=== PATIENT | female | born 1975 | race Two or more races ===

== ENCOUNTER 2020-11-28 15:28 | Inpatient (IN) | payer OTHER ==
[~2020-11-28] VITALS: Ht 170.2 cm; Wt 69.9 kg
--- NOTE | 2020-11-28 16:17 | NUR ---
To ER bed 6, c/o left breast pain x 2 days, s/p breast reduction 3 months ago, left breast noted with redness, aaox4, breathing even and non labored, friend at bedside
[2020-11-28] MEDS ORDERED: IV NS 0.9% 1,000 ML BAG IV ONE (16:30)
[2020-11-28] MEDS ORDERED: VANCOMYCIN 1 GM in IV D5W 250 ML IV ONE (16:30)
[2020-11-28] MEDS ORDERED: PIPERACILLIN /TAZOBACTAM 3.375 G in IV D5W 50 ML IV ONE (16:30)
[2020-11-28 16:40] LABS: BASOPHILS # (AUTO) 0.2 K/uL (0.0-0.2); BASOPHILS % (AUTO) 1.3 % (0.0-2.0); EOSINOPHILS % (AUTO) 0.1 % (0.0-6.0); HEMATOCRIT 42 % (33-45); HEMOGLOBIN 13.3 g/dL (11.5-14.8); LYMPHOCYTES # (AUTO) 1.5 K/uL (0.8-4.8); LYMPHOCYTES % (AUTO) 9.4 % (20.0-44.0); MEAN CORPUSCULAR HGB CONC 32 g/dl (31.0-36.0); MEAN CORPUSCULAR VOLUME 73 fL (82-100); MONOCYTES % (AUTO) 6.7 % (2.0-12.0); NEUTROPHILS # (AUTO) 12.8 K/uL (1.8-8.9); NEUTROPHILS % (AUTO) 82.5 % (43.0-81.0); PLATELET COUNT (AUTO) 202 K/uL (150-450); WHITE BLOOD COUNT (AUTO) 15.5 K/uL (4.3-11.0)
[2020-11-28 16:47] LABS: CALCIUM, SERUM 9.2 mg/dL (8.5-10.1); CREATININE 0.8 mg/dL (0.6-1.3); POTASSIUM 3.9 mmol/L (3.5-5.1)
[2020-11-28 16:53] LABS: BILIRUBIN,DIRECT 0.3 mg/dL (0.0-0.2); BILIRUBIN,TOTAL 2.2 mg/dL (0.2-1.0); TOTAL PROTEIN, SERUM 8.6 g/dL (6.4-8.2)
[2020-11-28] MEDS ORDERED: HYDROCODONE/APAP 5/325MG TABLET PO PRN (17:30)
[2020-11-28] MEDS ORDERED: MAGNESIUM HYDROXIDE 30 ML UDC PO PRN (17:30)
[2020-11-28] MEDS ORDERED: Z GUARD REMEDY 2 OZ OINT TP PRN (17:30)
[2020-11-28] MEDS ORDERED: MAG HYDROX/AL HYDROX/SIMETH 30 ML UDC PO PRN (17:30)
[2020-11-28] MEDS ORDERED: ONDANSETRON HCL/PF 4 MG/2 ML VIAL IVP PRN (17:30)
--- NOTE | 2020-11-28 18:00 | NUR ---
URINE COLLECTED AND SENT TO LAB
[2020-11-28] MEDS ORDERED: IOHEXOL-300 100 ML VIAL IV ONE (18:40)
[2020-11-28] MEDS ORDERED: IV NS 0.9% 250 ML IV ONE (18:40)
[2020-11-28 18:49] LABS: BAND % (MANUAL) 1 % (0.0-5.0); LYMPHOCYTES % (MANUAL) 17 % (16-48); MONOCYTES % (MANUAL) 2 % (0-11.0); NEUTROPHILS % (MANUAL) 80 (42-76)
--- NOTE | 2020-11-28 19:15 | NUR ---
REPORT GIVEN TO LASHONDA FOR RADHA
--- NOTE | 2020-11-28 19:32 | NUR ---
CALLED JAYESH TO HAVE IMAGE READ
--- NOTE | 2020-11-28 19:37 | NUR ---
GAVE REPORT TO LOLLY WALLACE FOR RADHA
[2020-11-28 20:30] VITALS: BP 122/71
[2020-11-29] MEDS: ACETAMINOPHEN 325 MG TABLET PO PRN ×2 (00:01→13:19)
[2020-11-29] MEDS: PIPERACILLIN /TAZOBACTAM 4.5 G in IV D5W 50 ML IV SCH ×5 (00:01→23:53)
[2020-11-29] MEDS: VANCOMYCIN HCL 0.75 GM in IV D5W 250 ML IV SCH ×3 (01:16→16:30)
[2020-11-29 06:11] LABS: BASOPHILS % (AUTO) 0.2 % (0.0-2.0); EOSINOPHILS % (AUTO) 1.1 % (0.0-6.0); HEMATOCRIT 36 % (33-45); HEMOGLOBIN 11.3 g/dL (11.5-14.8); LYMPHOCYTES # (AUTO) 1.6 K/uL (0.8-4.8); LYMPHOCYTES % (AUTO) 16.2 % (20.0-44.0); MEAN CORPUSCULAR HGB CONC 32 g/dl (31.0-36.0); MEAN CORPUSCULAR VOLUME 74 fL (82-100); MONOCYTES # (AUTO) 0.8 K/uL (0.1-1.30); MONOCYTES % (AUTO) 8.1 % (2.0-12.0); NEUTROPHILS # (AUTO) 7.1 K/uL (1.8-8.9); NEUTROPHILS % (AUTO) 74.4 % (43.0-81.0); PLATELET COUNT (AUTO) 141 K/uL (150-450); RED BLOOD CELL COUNT(AUTO) 4.82 MIL/uL (4.0-5.2); WHITE BLOOD COUNT (AUTO) 9.6 K/uL (4.3-11.0)
[2020-11-29 07:02] LABS: ALBUMIN 2.9 g/dL (3.4-5.0); BILIRUBIN,TOTAL 2.2 mg/dL (0.2-1.0); CALCIUM, SERUM 8.2 mg/dL (8.5-10.1); CREATININE 0.7 mg/dL (0.6-1.3); MAGNESIUM 1.9 mg/dL (1.8-2.4); POTASSIUM 3.3 mmol/L (3.5-5.1); TOTAL PROTEIN, SERUM 6.6 g/dL (6.4-8.2)
--- NOTE | 2020-11-29 07:07 | NUR ---
RN OPENING NOTES RECEIVED PATIENT AWAKE IN BED AT THIS TIME. AOX4, [place] SPEAKING. NO SOB NOTED, NO S/O ANY ACUTE DISTRESS. DENIES PAIN AT THIS TIME. ABLE TO MAKE NEEDS KNOWN. IV ACCESS NOTED IN LAC G#20, INTACT, PATENT AND FLUSHING WELL. PATIENT NOTED WITH LEFT INFLAMED BREAST DRAINING CLEAR YELLOW FLUID, GAUZE APPLIED AND SECURED WITH TAPE. SAFETY PRECAUTIONS IN PLACE AND MAINTAINED AT ALL TIMES. BED IN LOWEST LOCKED POSITION, SIDE RAILS UPX2, HOB ELEVATED, CALL LIGHT AND TABLE WITHIN REACH. WILL CONTINUE TO MONITOR
[2020-11-29 08:00] VITALS: BP 100/60
[2020-11-29] MEDS ORDERED: POTASSIUM CHLORIDE 20 MEQ TAB.PRT.SR PO ONE (09:00)
--- NOTE | 2020-11-29 10:27 | NUR ---
LEFT BREAST SPECIMEN COLLECTED BY DR BROWNE WITH NURSE AT BEDSIDE. RECEIVED ORDERS TO SEND LEFT BREAST SPECIMEN TO THE LAB FOR CULTURE AND SENSITIVITY. ORDERS CARRIED OUT. WILL CONTINUE TO MONITOR
--- NOTE | 2020-11-29 13:21 | NUR ---
PATIENT C/O HEADACHE OF 3/10 AT THIS TIME. PATIENT NOTED GRASPING SITE. VS BP 118/66, HR 80, RR 18, T 98.4, SPO2 100% ON RA. PER PATIENT REQUEST, TYLENOL 650MG PO Q6H PRN FOR PAIN ADMINISTERED AT THIS TIME. WILL CONTINUE TO MONITOR
[2020-11-29 13:39] LABS: EOSINOPHILS % (MANUAL) 1 % (0-4); LYMPHOCYTES % (MANUAL) 14 % (16-48); MONOCYTES % (MANUAL) 11 % (0-11.0); NEUTROPHILS % (MANUAL) 74 (42-76)
[2020-11-29 16:00] VITALS: BP 98/60
--- NOTE | 2020-11-29 17:40 | NUR ---
DICE DEALER CALLED FOR VANCO TROUGH OF 23 AND REQUESTED TO HOLD VANCOMYCIN, VANCOMYCIN HELD. WILL CONTINUE TO MONITOR. WILL CONTINUE WITH PLAN OF CARE
--- NOTE | 2020-11-29 18:54 | NUR ---
END OF SHIFT SUMMARY PATIENT AWAKE IN BED AT THIS TIME. PATIENT REMAINED STABLE THROUGHOUT SHIFT. ALL CARE, NEED, MEDICATIONS AND TREATMENT ADMINISTERED ANTICIPATED PER ORDER. SAFETY PRECAUTIONS IN PLACE AND MAINTAINED AT ALL TIMES. BED IN LOWEST LOCKED POSITION, SIDE RAILS UPX2, HOB ELEVATED, CALL LIGHT AND TABLE WITHIN REACH. WILL ENDORSE TO ENVIRONMENTAL PROTECTION OFFICER NURSE FOR RADHA
--- NOTE | 2020-11-29 19:25 | NUR ---
MS RN OPENING NOTES: RECEIVED PATIENT IN BED, AWAKE, A/O X4. NO DISTRESS NOTED. CALL LIGHT WITHIN REACH. BED IN LOWEST AND LOCKED POSITION. WITH LEFT BREAST DRESSING CLEAN, DRY AND INTACT. NO DRAINAGE NOTED. PATIENT IS CALM, NO C/O OF PAIN.
[2020-11-29 20:00] VITALS: BP 99/59
[2020-11-30] MEDS ORDERED: VANCOMYCIN 500 MG in IV D5W 100ml IV SCH (01:00)
[2020-11-30] MEDS: PIPERACILLIN /TAZOBACTAM 4.5 G in IV D5W 50 ML IV SCH ×3 (05:17→17:17)
[2020-11-30 07:35] LABS: CALCIUM, SERUM 8.2 mg/dL (8.5-10.1); CREATININE 0.8 mg/dL (0.6-1.3); POTASSIUM 3.8 mmol/L (3.5-5.1)
--- NOTE | 2020-11-30 07:36 | NUR ---
MS RN OPENING NOTE RECEIVED PATIENT IN BED, ASLEEP, EASY TO AROUSE. ALERT AND ORIENTED X 4,RWANDAN SPEAKING. NO S/S OF DISTRESS NOTED. BREATHING IS EVEN AND UNLABORED. IV ACCESS LAC#20 PATENT AND INTACT. SAFETY MEASURES IN PLACE WITH BED LOCKED AND LOW POSITION, SIDE RAILS UP X 2. CALL LIGHT WITHIN REACH. WILL CONTINUE TO MONITOR THROUGHOUT SHIFT.
[2020-11-30 08:00] VITALS: BP 92/57
[2020-11-30] MEDS ORDERED: D5W IV SCH (11:00)
[2020-11-30] MEDS ORDERED: VANCOMYCIN IV SCH (11:00)
[2020-11-30 16:00] VITALS: BP 104/65
--- NOTE | 2020-11-30 16:05 | NUR ---
MS MIXER OPERATOR RAW SALT NOTE PATIENT WAS DISCHARGED WITH STABLE VITAL SIGNS. ALERT AND ORIENTED X 4 NAURUAN SPEAKING. ALL BELONGINGS RETURNED TO PATIENT AND PATIENT BELONGINGS LIST SIGNED AND COPY PLACED IN CHART. REVIEWED DISCHARGE INSTRUCTIONS WITH PATIENT AND FRIEND SOLE FILLER, VERBALIZED UNDERSTANDING. IV MIDLINE ACCESS KEPT IN PLACE FOR HOME HEALTH IV ABX. ID BAND REMOVED. ACCOMPANIED PATIENT OUT OF UNIT AT THIS TIME AND OBSERVED PATIENT GET INTO PRIVATE CAR.
== END 2020-11-30 18:15 | disposition home health service (06) | DRG 385 ==
LOC: ER 15:34 → MED 19:56
PROVIDERS: ADMIT Internal Medicine; ATTEND Internal Medicine
PROC: 05HD33Z Insertion of Infusion Device into Right Cephalic Vein, Percutaneous Approach (ICD-10-PCS; principal; 2020-11-30)
DX: N61.1 Abscess of the breast and nipple (principal); Z20.822 Contact with and (suspected) exposure to COVID-19; T85.79XA Infection and inflammatory reaction due to other internal prosthetic devices, implants and grafts, initial encounter; Z98.82 Breast implant status; Y92.009 Unspecified place in unspecified non-institutional (private) residence as the place of occurrence of the external cause; Y83.1 Surgical operation with implant of artificial internal device as the cause of abnormal reaction of the patient, or of later complication, without mention of misadventure at the time of the procedure
CPT/HCPCS: 36410; 36415; 71045-TC; 71260-TC; 76642-LT-TC; 80048-TC; 80053-TC; 80076-TC; 80202-TC; 83605-TC; 83735-TC; 84100-TC; 84703-TC; 85025-TC; 85730-TC; 87040-TC; 87070-TC; 87081-TC; A6403; C9803; G0378; J2543; J3370; J7030; J7040; J7050; J7060; Q9967